=== PATIENT | female | born 1950 | race Caucasian/White ===

== ENCOUNTER 2019-06-24 00:03 | Inpatient (IN) | payer OTHER ==
[~2019-06-24] VITALS: Ht 172.7 cm; Wt 65.8 kg
[2019-06-24 00:03] VITALS: BP 143/66
--- NOTE | 2019-06-24 00:04 | NUR ---
PT BIBA BLS TO ER BED 12
--- NOTE | 2019-06-24 00:15 | NUR ---
69 Y/O F, BROUGHT INTO ED WITH COMPLAINTS OF SOB AND FLU-LIKE SYMPTOMS FOR THE PAST 4 DAYS. PT REPORTS NAUSEA BUT NO VOMITING, COUGH THAT IS NONPRODUCTIVE AND TOO WEAK TO COUGH UP SECRETIONS. HAS LOW GRADE FEVER OF 99.9 AND REPORTS CHEST PAIN FROM DIFFICULTY BREATHING. HX OF COPD AND QUIT SMOKING OVER 30 YEARS AGO. LUNG SOUNDS RHONCHI IN UPPER LOBES. SIERAILS UP x1, PATIENT SITTING UP OVER SIDE OF BED IN TRIPOD POSITION. WILL CONTINUE TO MONITOR.
--- NOTE | 2019-06-24 00:38 | NUR ---
FLU SWAB COLLECTED, PATIENT TOLERATED WELL.
--- NOTE | 2019-06-24 00:47 | NUR ---
XRAY AT BEDSIDE.
[2019-06-24] MEDS ORDERED: NACL 0.9% 500 ML IV SCH (01:00)
[2019-06-24] MEDS ORDERED: PIPERACILLIN/TAZOBACTAM 3.375 GM in DEXTROSE 5% 50 ML IV ONE (01:20)
[2019-06-24] MEDS ORDERED: ALBUTEROL SULFATE/IPRATROPIU 3 ML SOL IH ONE (01:20)
[2019-06-24 01:21] LABS: BASOPHILS % (AUTO) 0.3 % (0.0-2.0); EOSINOPHILS % (AUTO) 0.2 % (0.0-4.0); HEMOGLOBIN 13.2 g/dL (12.0-16.0); LYMPHOCYTES # (AUTO) 2.1 K/uL (2.5-16.5); LYMPHOCYTES % (AUTO) 25.7 % (20.5-51.1); MEAN CORPUSCULAR HEMOGLOBIN 29 pg (27-31); MEAN CORPUSCULAR HGB CONC 33 g/dL (33-37); MEAN CORPUSCULAR VOLUME 88.9 fL (80-94); MONOCYTES # (AUTO) 0.9 K/uL (0.8-1.0); MONOCYTES % (AUTO) 10.8 % (1.7-9.3); NEUTROPHILS # (AUTO) 5.1 K/uL (1.8-7.7); PLATELET COUNT (AUTO) 263 K/uL (140-450); RED CELL DISTRIBUTION WIDTH 13.5 % (11.6-13.7); WHITE BLOOD COUNT (AUTO) 8.2 K/uL (4.8-10.8)
--- NOTE | 2019-06-24 01:29 | NUR ---
PERIPHERAL IV STARTED RIGHT FOREARM 22G, ON FIRST ATTEMPT, PATIENT TOLERATED WELL. IV FLUIDS STARTED.
[2019-06-24 01:33] LABS: ANION GAP 13.8 (8-16); CARBON DIOXIDE 26.4 mmol/L (21-32); CREATININE 0.8 mg/dL (0.6-1.3); POTASSIUM 4.2 mmol/L (3.5-5.1)
[2019-06-24 01:39] LABS: ALBUMIN 3.8 g/dL (3.4-5.0); TOTAL BILIRUBIN 0.4 mg/dL (0.0-1.0)
[2019-06-24] MEDS ORDERED: PIPERACILLIN/TAZOBACTAM 3.375 GM VIAL IV ONE ×2 (01:43→02:02)
--- NOTE | 2019-06-24 02:05 | NUR ---
URINE SAMPLE COLLECTED AND WALKED TO LAB.
[2019-06-24 02:12] LABS: APPEARANCE,URINE CLEAR (CLEAR); BILIRUBIN,URINE NEGATIVE (NEGATIVE); BLOOD, URINE NEGATIVE (NEGATIVE); COLOR,URINE YELLOW (YELLOW); LEUKOCYTE ESTERASE ,URINE NEGATIVE (NEGATIVE); NITRITE, URINE NEGATIVE (NEGATIVE); UGLUCOSE NEGATIVE (NEGATIVE)
[2019-06-24] MEDS ORDERED: ALBUTEROL 0.083% 2.5 MG/3 ML NEBU INH PRN (02:40)
[2019-06-24] MEDS ORDERED: ACETAMINOPHEN 325 MG TAB PO PRN (02:40)
[2019-06-24] MEDS ORDERED: ONDANSETRON 4 MG/2 ML VIAL IVP PRN (02:40)
[2019-06-24] MEDS ORDERED: MORPHINE SULFATE 4 MG/ML SYR IVP PRN (02:40)
--- NOTE | 2019-06-24 03:20 | NUR ---
RECEIVED PATIENT FROM ER NURSE VIA [facility]. ALERT AND ORIENTED X4. NO APPARENT DISTRESS NOTED. ABLE TO TRANSFER AND AMBULATE FROM [facility] TO BED WITH STAND BY ASSIST. WITH 22G RIGHT FOREARM SALINE LOCKED. BED ON LOW POSITION. CALL LIGHT WITHIN REACH. WILL CONTINUE TO MONITOR. Addendum: 06/24/19 at 0654 by Vic Herr RN AG=982/67, 22, 94, 91% ON ROOM AIR.
--- NOTE | 2019-06-24 03:24 | NUR ---
Patient to be transferred to [facility]. Is being transferred due to COPD EXACERBATION. Receiving facility has accepting physician and available space. ER physician has signed transfer form. Patient or responsible republican has agreed to transfer and signed form. Patient belongings inventoried and will be sent with patient. Copy of nursing notes, lab reports, EKG, Physicians Orders and X-rays to be sent with patient. Report called to SCOT at receiving facility. PATIENT IN STABLE CONDITION, VSS, PT REPORTS PAIN/DISCOMFORT AT SACRUM DUE TO UNCOMFORTABLE POSITION, WILL ENDORSE TO RN.
--- NOTE | 2019-06-24 03:25 | NUR ---
REPORT GIVEN TO [facility] RN, SCOT, FOR CONTINUITY OF CARE.
--- NOTE | 2019-06-24 03:49 | NUR ---
SPOKE WITH PATIENTS DAUGHTER TO UPDATE ON PATIENTS CONDITION. JUN [phone]
[2019-06-24] MEDS: LEVOFLOXACIN 750 MG/D5W PREMIX 150 ML IV SCH (03:52)
[2019-06-24] MEDS: HYDROcodone/APAP 5/325 MG 1 TAB TAB PO PRN ×2 (03:54→11:08)
--- NOTE | 2019-06-24 05:10 | NUR ---
PATIENT AWAKE IN BED RESTING. NO APPARENT DISTRESS NOTED. WILL CONTINUE TO MONITOR.
[2019-06-24] MEDS ORDERED: methylPREDNISolone SS 40 MG in WATER STERILE 1 ML IV SCH (06:00)
--- NOTE | 2019-06-24 06:55 | NUR ---
PATIENT AWAKE IN BED. DENIES PAIN NOR DISCOMFORT AT THIS TIME. WILL CONTINUE TO MONITOR.
[2019-06-24] MEDS ORDERED: ALBUTEROL 0.083% 2.5 MG/3 ML NEBU INH SCH (07:00)
[2019-06-24] MEDS: IPRATROPIUM 0.02% 0.5 MG/2.5 ML NEBU INH SCH ×3 (07:00→19:22)
--- NOTE | 2019-06-24 07:20 | NUR ---
ENDORSED TO AM SHIFT NURSE IN STABLE CONDITION FOR CONTINUITY OF CARE.
--- NOTE | 2019-06-24 07:41 | NUR ---
RECEIVED PT FROM DIRECTOR OF COMPLIANCE FRO CONTINUITY OF CARE. PT IS AAOX4, COOPERATIVE. PT IS AMBULATORY WITH ASSISTANCE OF HER CANE. BEDSIDE COMMODE PLACED NEAR PT BED FOR HER SAFETY. PT ON RA, HX OF COPD. SATING AT 91-92%. PT SKIN IS INTACT. IV IN THE RIGHT FA 22G SALINE LOCKED. EXPLAINED POC TO PT AND PT VERBALIZED UNDERSTANDING. SAFETY MEASURES IN PLACE, BED IN LOW POSITION, CALL LIGHT WITHIN REACH. WILL ROUND FREQUENTLY ON PT.
[2019-06-24 08:00] VITALS: BP 108/49
--- NOTE | 2019-06-24 08:28 | NUR ---
PATIENT HAS BEEN SCREENED AND CATEGORIZED MODERATE NUTRITION RISK. PATIENT WILL BE SEEN WITHIN 3-5 DAYS OF ADMISSION. 06/26/19 06/28/[address]
[2019-06-24] MEDS: ENOXAPARIN 40 MG/0.4 ML SYR SUBQ SCH (09:30)
--- NOTE | 2019-06-24 09:36 | NUR ---
PT MORNING MEDS GIVEN. ALL NEEDS MET. WILL CONTINUE TO ROUND FREQUENTLY ON PT. BED IN LOW POSITION, CALL LIGHT WITHIN REACH.
--- NOTE | 2019-06-24 10:48 | NUR ---
I ASKED PT IF SHE HAD MEDICATIONS WITH HER TO COMPLETE MED RECONCILIATION. PT STATED THAT HE MEDS ARE AT HOME AND HER DAUGHTER OR HER GRANDDAUGHTER WILL BE IN TO BRING A LIST OF HER CURRENT MEDS. WILL RECONCILE MEDS WHEN THE LIST/MEDS ARE BROUGHT. DR.KIM ALANIS.
[2019-06-24] MEDS ORDERED: FUROSEMIDE 40 MG/4 ML VIAL IVP SCH (11:40)
--- NOTE | 2019-06-24 11:41 | NUR ---
PT ASLEEP. AT BEDSIDE. WILL CONTINUE TO ROUND FREQUENTLY ON PT. BED IN LOW POSITION, CALL LIGHT WITHIN REACH.
[2019-06-24] MEDS ORDERED: BUDESONIDE 0.5 MG/2 ML NEBU INH SCH (11:45)
[2019-06-24 12:00] VITALS: BP 119/54
--- NOTE | 2019-06-24 13:20 | NUR ---
MS RESTING IN BED WITH AT BEDSIDE. ALL NEEDS MET. WILL CONTINUE TO ROUND FREQUENTLY ON PT. BED IN LOW POSITION, CALL LIGHT WITHIN REACH.
[2019-06-24] MEDS: methylPREDNISolone SS 40 MG/ML VIAL IVP SCH ×3 (13:26→23:06)
--- NOTE | 2019-06-24 13:44 | NUR ---
DISCHARGE PLANNIN YO FEMALE FROM HOME, ADMITTED DUE TO WORSENING DYSPNEA FOR 4 DAYS. INITIAL DIAGNOSIS OF COPD EXACERBATION. PAST MEDICAL HISTORY BRONCHITIS AND COPD. CXR SHOWED BRONCHITIS OR DEVELOPING BRONCHO PNEUMONIA. ON SOLU MEDROL AND LEVOFLOXACIN IV. ON ROOM AIR, SAT 92%. NO CONSULTS AT THIS TIME. DC PLANNING PENDING ON PATIENT'S RESPONSE TO TREATMENT. Addendum: 06/26/19 at 1552 by Sharmaine Wong CM LATE ENTRY: 1140: CONTACTED [facility] [phone] REGARDING WHEELCHAIR ORDER. SHE STATED TO FAX THE ORDER IN TO [phone]. ORDER SENT TO THE PROVIDED NUMBER. 1540: CONTACTED [facility] TO CONFIRM IF THEY HAVE RECEIVED THE FAX. SHE STATED THEY DID NOT. RECONFIRMED THE FAX NUMBER. ORDER FAXED. Addendum: 06/26/19 at 1637 by Sharmaine Wong CM PER [facility], WHEELCHAIR WILL BE DELIVERED TO THE PATIENT'S HOME THROUGH [employer]. AUTH NUMBER [id number]. CHARGE NURSE BERNADETTE MADE AWARE.
--- NOTE | 2019-06-24 13:48 | NUR ---
PT'S BREATHING TX NOT ADMINISTERED BECAUSE IMPUTED ORDERS INCORRECTLY. PAGED FOR RT TO CLARIFY ORDERS. BREATHING TX TO START AT 1900.
--- NOTE | 2019-06-24 15:51 | NUR ---
PT RESTING IN BED. ALL NEEDS MET. PT DENIES PAIN OR SOB. WILL CONTINUE TO ROUND FREQUENTLY ON PT. BED IN LOW POSITION, CALL LIGHT WITHIN REACH.
[2019-06-24 16:00] VITALS: BP 132/52
--- NOTE | 2019-06-24 16:28 | NUR ---
Corporate Learning Consultant Note: Basic Screen: Yes High Risk DC Screen Yes Name: KAILA ZARATE Home Relationship: DAUGHTER Pre-Admission Living Arrangements: Lives Alone Prior ADL Needs Assistance Current Home Health Name/Tel: N/A Current DME/02 Name/Tel: N/A Current Hospice Name/Tel: N/A Current Dialysis Name/Tel: N/A Healthcare Decision Maker: Patient Advance Directive No - REFUSED Physician Orders for Life Sustaining Treatment Form No Patient/Family Have Educational Needs No Information Taught: Advance Directive Person Taught: Patient Teaching Tools: Verbal Factors Affecting Learning: None Participation Level: Active Evaluation: Verbalizes Understanding Needs Additional Education: No Discipline: Case Mgt/Social Svcs Tentative Discharge Plan/Destination: No Needs Identified Will require assistance post discharge: No Referred to Web Site Developer: No Tentative Discharge Plan Summary: Patient is a 69 year old female admitted for chronic obstructive pulmo. Patient has PMHX of bronchitis and COPD. Patient was admitted from home. MOO verified demographics with patients daughter, Kaila Zarate. Kaila reported that patient lives alone but has a caregiver that comes in daily for 4 hours through [facility]. Per Kaila, patient has a history of Bipolar Disorder and is medication compliant. Kaila stated that patient has no substance abuse history. SW offered education on advanced directive but Kaila refused. Kaila stated that patients tentative discharge plan is to return home. No further needs identified. Signature: MAUREEN Zhou Date: Jun 24, 2019 Time: 16:27
[2019-06-24] MEDS: LORazepam 2 MG/ML VIAL IVP PRN (17:29)
--- NOTE | 2019-06-24 17:48 | NUR ---
PT RESTING. ALL NEEDS MET.
[2019-06-24] MEDS: ALBUTEROL 0.083% 2.5 MG/3 ML NEBU INH SCH (19:21)
[2019-06-24] MEDS: BUDESONIDE 0.5 MG/2 ML NEBU INH SCH (19:22)
[2019-06-24] MEDS ORDERED: AMYL-43 PO (19:36)
[2019-06-24] MEDS ORDERED: DILT-135 PO (19:36)
[2019-06-24] MEDS ORDERED: LOVA10TA2 PO (19:36)
[2019-06-24] MEDS ORDERED: MONT10TA35 PO (19:36)
[2019-06-24] MEDS ORDERED: SYN.05 PO (19:36)
[2019-06-24] MEDS ORDERED: LOSA50TA66 PO (19:36)
[2019-06-24] MEDS ORDERED: BUDE1AER IH (19:36)
[2019-06-24] MEDS ORDERED: PRON INH (19:36)
[2019-06-24] MEDS ORDERED: DOCU250S85 PO (19:36)
[2019-06-24] MEDS ORDERED: TRAZ-343 PO (19:36)
[2019-06-24] MEDS ORDERED: BUS5 PO (19:36)
[2019-06-24] MEDS ORDERED: LORA10TA19 PO (19:36)
[2019-06-24] MEDS ORDERED: [UNRECOGNIZED DRUG - CODE] PO (19:36)
--- NOTE | 2019-06-24 19:42 | NUR ---
ENDORSED PT TO BASKETBALL ASSEMBLER FOR CONTINUITY OF CARE. PT IN STABLE CONDITION AT THIS TIME.
--- NOTE | 2019-06-24 19:48 | NUR ---
RECEIVED REPORT FROM AM SHIFT NURSE MARISOL. PATIENT ALERT AND ORIENTED X 4. NO APPARENT DISTRESS NOTED. WITH RIGHT FOREARM 22G PIV. BED ON LOW POSITION. DENIES PAIN NOR DISCOMFORT AT THIS TIME. WILL CONTINUE TO MONITOR.
[2019-06-24 20:00] VITALS: BP 119/45
--- NOTE | 2019-06-24 21:40 | NUR ---
ASSISTED PATIENT TO BEDPAN. NO APPARENT DISTRESS NOTED. BED ON LOW POSITION. BED ALARM ON. NO APPARENT DISTRESS NOTED. WILL CONTINUE TO MONITOR. Addendum: 06/24/19 at 2206 by Vic Herr RN DISREGARD NOTE. WRONG PATIENT.
--- NOTE | 2019-06-24 21:45 | NUR ---
PATIENT RESTING IN BED. NO APPARENT DISTRESS NOTED. WILL CONTINUE TO MONITOR.
--- NOTE | 2019-06-24 23:40 | NUR ---
PATIENT ASLEEP IN BED. NO APPARENT DISTRESS NOTED. WILL CONTINUE TO MONITOR.
[2019-06-25] VITALS: BP 120/63
--- NOTE | 2019-06-25 01:35 | NUR ---
PATIENT ASLEEP IN BED NO DISTRESS NOTED. VISIBLE CHEST RISE AND FALL NOTED. WILL CONTINUE TO MONITOR.
[2019-06-25] MEDS: ALBUTEROL 0.083% 2.5 MG/3 ML NEBU INH SCH ×4 (01:58→19:06)
[2019-06-25] MEDS: IPRATROPIUM 0.02% 0.5 MG/2.5 ML NEBU INH SCH ×4 (01:58→19:06)
--- NOTE | 2019-06-25 02:07 | NUR ---
PT ON ROOM AIR WITH SP02 98% AND RHONCHI BREATH SOUNDS. NO RESPIRATORY DISTRESS NOTED. SPONTANEOUS EXPECTORATE OF MODERATE GREENISH THICK SECRETIONS. TX GIVEN ORDERED WITH NO ADVERSE REACTION. WILL CONTINUE TO MONITOR PT
--- NOTE | 2019-06-25 03:35 | NUR ---
PATIENT ASLEEP IN BED. VISIBLE CHEST RISE AND FALL NOTED. BED ON LOW POSITION. CALL LIGHT WITHIN REACH. NO APPARENT DISTRESS NOTED. WILL CONTINUE TO MONITOR.
[2019-06-25] MEDS: LEVOFLOXACIN 750 MG/D5W PREMIX 150 ML IV SCH (03:43)
[2019-06-25 04:00] VITALS: BP 140/63
[2019-06-25] MEDS: methylPREDNISolone SS 40 MG/ML VIAL IVP SCH ×4 (05:21→23:34)
--- NOTE | 2019-06-25 05:30 | NUR ---
PATIENT ASLEEP IN BED. NO APPARENT DISTRESS NOTED. WILL CONTINUE TO MONITOR.
[2019-06-25 06:12] LABS: HEMATOCRIT 40.5 % (36-48); HEMOGLOBIN 13.1 g/dL (12.0-16.0); LYMPHOCYTES # (AUTO) 0.9 K/uL (2.5-16.5); LYMPHOCYTES % (AUTO) 11.1 % (20.5-51.1); MEAN CORPUSCULAR HEMOGLOBIN 29 pg (27-31); MEAN CORPUSCULAR HGB CONC 32 g/dL (33-37); MEAN CORPUSCULAR VOLUME 89.8 fL (80-94); MONOCYTES # (AUTO) 0.2 K/uL (0.8-1.0); MONOCYTES % (AUTO) 2.9 % (1.7-9.3); NEUTROPHILS # (AUTO) 7.2 K/uL (1.8-7.7); PLATELET COUNT (AUTO) 216 K/uL (140-450); RED BLOOD CELL COUNT(AUTO) 4.51 MIL/uL (4.20-5.40); RED CELL DISTRIBUTION WIDTH 13.7 % (11.6-13.7); WHITE BLOOD COUNT (AUTO) 8.3 K/uL (4.8-10.8)
[2019-06-25 06:53] LABS: ALBUMIN 3.4 g/dL (3.4-5.0); ANION GAP 12.8 (8-16); CARBON DIOXIDE 28.1 mmol/L (21-32); CREATININE 0.8 mg/dL (0.6-1.3); MAGNESIUM 2.1 mg/dL (1.8-2.4); POTASSIUM 3.9 mmol/L (3.5-5.1); TOTAL BILIRUBIN 0.3 mg/dL (0.0-1.0)
--- NOTE | 2019-06-25 07:10 | NUR ---
ENDORSED TO AM SHIFT IN STABLE CONDITION FOR CONTINUITY OF CARE.
[2019-06-25] MEDS: BUDESONIDE 0.5 MG/2 ML NEBU INH SCH ×2 (07:33→19:15)
--- NOTE | 2019-06-25 07:44 | NUR ---
PT IS ON RA SAT 98%. PT HAS A PRODUCTIVE COUGH. SPUTUM IS THIN CLEAR, AND CREAMY. NO RESPIRATORY DISTRESS NOTED
--- NOTE | 2019-06-25 07:45 | NUR ---
Received report from cnc machinist 2nd shift nurse. Pt is in stable condition. Call light in reach.
[2019-06-25 08:00] VITALS: BP 102/75
[2019-06-25] MEDS: HYDROcodone/APAP 5/325 MG 1 TAB TAB PO PRN (08:36)
[2019-06-25] MEDS: ENOXAPARIN 40 MG/0.4 ML SYR SUBQ SCH (08:42)
[2019-06-25] MEDS: LORazepam 2 MG/ML VIAL IVP PRN ×2 (09:25→19:47)
--- NOTE | 2019-06-25 10:00 | NUR ---
Pt is resting in bed. Pt is in stable condition. Call light in reach.
[2019-06-25 12:00] VITALS: BP 142/66
--- NOTE | 2019-06-25 12:00 | NUR ---
Pt is resting in bed. Pt is in stable condition. Call light in reach.
--- NOTE | 2019-06-25 15:00 | NUR ---
Pt is resting in bed. Pt is in stable condition. Call light in reach.
[2019-06-25 16:00] VITALS: BP 130/57
--- NOTE | 2019-06-25 18:00 | NUR ---
Pt is resting in bed. Pt is in stable condition. Grand daughter by bedside. Call light in reach.
--- NOTE | 2019-06-25 19:18 | NUR ---
Shift report given to shift lab technician nurse. Pt is in stable condition. Call light in reach
[2019-06-25 20:00] VITALS: BP 135/63
[2019-06-26] VITALS: BP 115/61
[2019-06-26] MEDS: IPRATROPIUM 0.02% 0.5 MG/2.5 ML NEBU INH SCH ×3 (01:00→12:47)
[2019-06-26] MEDS: ALBUTEROL 0.083% 2.5 MG/3 ML NEBU INH SCH ×3 (01:00→12:47)
--- NOTE | 2019-06-26 01:25 | NUR ---
SCHEDULED BREATHING TX NOT GIVEN AT THIS TIME PER PATIENT'S REQUEST WHILE ASLEEP. PT IS ASLEEP AND IN NO RESP DISTRESS AT THIS TIME.
[2019-06-26] MEDS: LEVOFLOXACIN 750 MG/D5W PREMIX 150 ML IV SCH (03:02)
--- NOTE | 2019-06-26 03:10 | NUR ---
PT SLEEPING, EASILY AROUSABLE, NO SOB NOTED, DUE LEVAQUIN IVPB ADMINISTERED, PT WENT BACK TO SLEEP, MONITORED CLOSELY.
[2019-06-26 04:00] VITALS: BP 111/52
[2019-06-26] MEDS: LEVOTHYROXINE 0.05 MG TAB PO SCH (05:37)
[2019-06-26] MEDS: methylPREDNISolone SS 40 MG/ML VIAL IVP SCH ×3 (05:37→17:14)
--- NOTE | 2019-06-26 05:40 | NUR ---
DUE MEDS ADMINISTERED WITH EDUCATION PROVIDED, TOLERATED WELL, NO RESP DISTRESS NOTED, MONITORED CLOSELY.
--- NOTE | 2019-06-26 07:10 | NUR ---
PT AWAKE, NO SIGNS OF DISTRESS, REPORT GIVEN TO TOBY SENA FOR CONTINUITY OF CARE.
--- NOTE | 2019-06-26 07:18 | NUR ---
RECEIVED BEDSIDE REPORT FROM PM RN PT APPEARS STABLE AND IN NO APPARENT DISTRESS. ALL SAFETY MEASURES ARE IN PLACE WILL CONTINUE TO MONITOR
[2019-06-26] MEDS: BUDESONIDE 0.5 MG/2 ML NEBU INH SCH ×2 (07:23→19:42)
[2019-06-26] MEDS: LORazepam 2 MG/ML VIAL IVP PRN (07:37)
[2019-06-26 08:12] VITALS: BP 126/57
[2019-06-26] MEDS ORDERED: PROTEASE PO SCH (09:00)
[2019-06-26] MEDS ORDERED: NIZATIDINE 150 MG PO SCH (09:00)
[2019-06-26] MEDS ORDERED: LIPASE PO SCH (09:00)
[2019-06-26] MEDS ORDERED: AMYLASE PO SCH (09:00)
[2019-06-26] MEDS: DOCUSATE SODIUM 250 MG GELCAP PO SCH ×3 (09:05→16:35)
[2019-06-26] MEDS: DILTIAZEM 120 MG CAPER PO SCH (09:05)
[2019-06-26] MEDS: LORATADINE 10 MG TAB PO SCH (09:06)
[2019-06-26] MEDS: LOSARTAN 50 MG TAB PO SCH ×2 (09:06→20:36)
[2019-06-26] MEDS: ENOXAPARIN 40 MG/0.4 ML SYR SUBQ SCH (09:11)
--- NOTE | 2019-06-26 09:47 | NUR ---
FREQUENT ROUNDING ON PT PT APPEARS STABLE AND IN NO APPARENT DISTRESS. ALL SAFETY MEASURES ARE IN PLACE
--- NOTE | 2019-06-26 11:34 | NUR ---
FREQUENT ROUNDING ON PT PT APPEARS STABLE AND IN NO APPARENT DISTRESS ALL SAFETY MEASURES ARE IN PLACE
[2019-06-26 12:05] VITALS: BP 128/62
--- NOTE | 2019-06-26 13:57 | NUR ---
FREQUENT ROUNDING ON PT PT APPEARS STABLE AND IN NO APPARENT DISTRESS ALL SAFETY MEASURES ARE IN PLACE.
--- NOTE | 2019-06-26 15:34 | NUR ---
FREQUENT ROUNDING ON PT PT APPEARS STABLE AND IN NO APPARENT DISTRESS. ALL SAFETY MEASURES ARE IN PLACE
[2019-06-26 17:36] VITALS: BP 126/55
[2019-06-26] MEDS: HYDROcodone/APAP 5/325 MG 1 TAB TAB PO PRN (18:47)
--- NOTE | 2019-06-26 19:24 | NUR ---
RECIEVED PT AAOX4 , NID , IV SITE INTACT AND PATENT . NO FURTHER COMPLAIN MADE , RESTING ON BED COMFORTABLY - CALL LIGHT WITHIN REACH . POC DISCUSSED AND VERBALIZE UNDERSTANDING. WILL CONT. TO MONITOR.
--- NOTE | 2019-06-26 19:24 | NUR ---
ENDORSED PT TO PM RN
[2019-06-26] MEDS: ALBUTEROL SULFATE/IPRATROPIU 3 ML SOL IH SCH (19:42)
--- NOTE | 2019-06-26 19:58 | NUR ---
RECEIVED PATIENT ON ROOM AIR, PULSE OX SAT 95%. SCHEDULED BREATHING TREATMENTS ADMINISTERED. TOLERATED WELL WITHOUT ADVERSE SIDE EFFECTS. NO ACUTE RESPIRATORY DISTRESS NOTED AT THIS TIME. WILL CONTINUE TO MONITOR.
[2019-06-26] MEDS ORDERED: LOVASTATIN 10 MG PO SCH (20:00)
[2019-06-26] MEDS ORDERED: LORazepam 2 MG/ML VIAL ONE (20:34)
[2019-06-26] MEDS ORDERED: traZODone 50 MG TAB PO SCH (21:00)
[2019-06-26] MEDS ORDERED: MONTELUKAST SODIUM 10 MG TAB PO SCH (21:00)
--- NOTE | 2019-06-26 22:00 | NUR ---
MADE ROUNDS , NO SIGNS OF ACUTE DISTRESS NOTED AT THIS TIME - WILL CONT. TO MONITOR.
[2019-06-27] VITALS: BP 124/55
[2019-06-27] MEDS: methylPREDNISolone SS 40 MG/ML VIAL IVP SCH (00:18)
--- NOTE | 2019-06-27 01:00 | NUR ---
DR KNIGHT , DROPBY TO GET AN UPDATE ABOUT THE PT. - WILL DISCHARGE TODAY WITH IF STABLE .
[2019-06-27] MEDS: ALBUTEROL SULFATE/IPRATROPIU 3 ML SOL IH SCH ×2 (01:26→06:58)
--- NOTE | 2019-06-27 01:40 | NUR ---
SCHEDULED BREATHING TREATMENT ADMINISTERED. TOLERATED WELL WITHOUT ADVERSE SIDE EFFECTS. NO RESPIRATORY DISTRESS NOTED. WILL CONTINUE TO MONITOR.
[2019-06-27 04:00] VITALS: BP 117/60
--- NOTE | 2019-06-27 04:00 | NUR ---
MADE ROUNDS , NO SIGNS OF ACUTE DISTRESS NOTED AT THIS TIME. - WILL CONT. TO MONITOR.
[2019-06-27] MEDS ORDERED: LEVO750T2 PO (04:33)
[2019-06-27] MEDS ORDERED: PRED20TA5 PO (04:35)
[2019-06-27] MEDS ORDERED: LEVAQUIN (04:39)
[2019-06-27] MEDS ORDERED: LE (04:39)
[2019-06-27] MEDS ORDERED: LEVAQUIN PO (04:41)
[2019-06-27] MEDS: LEVOFLOXACIN 750 MG/D5W PREMIX 150 ML IV SCH (04:42)
--- NOTE | 2019-06-27 06:00 | NUR ---
SLEEPING . CHEST RISE AND FALL EQUALLY. WILL CONT. TO MONITOR.
[2019-06-27 06:26] LABS: HEMATOCRIT 36.9 % (36-48); LYMPHOCYTES # (AUTO) 0.7 K/uL (2.5-16.5); MEAN CORPUSCULAR HEMOGLOBIN 29 pg (27-31); MEAN CORPUSCULAR HGB CONC 33 g/dL (33-37); MEAN CORPUSCULAR VOLUME 89.3 fL (80-94); MONOCYTES # (AUTO) 0.3 K/uL (0.8-1.0); MONOCYTES % (AUTO) 4.3 % (1.7-9.3); NEUTROPHILS # (AUTO) 5.2 K/uL (1.8-7.7); NEUTROPHILS % (AUTO) 84.7 % (42.2-75.2); PLATELET COUNT (AUTO) 244 K/uL (140-450); RED BLOOD CELL COUNT(AUTO) 4.13 MIL/uL (4.20-5.40); RED CELL DISTRIBUTION WIDTH 13.6 % (11.6-13.7); WHITE BLOOD COUNT (AUTO) 6.2 K/uL (4.8-10.8)
[2019-06-27] MEDS: LEVOTHYROXINE 0.05 MG TAB PO SCH (06:42)
[2019-06-27 06:52] LABS: ALBUMIN 3.1 g/dL (3.4-5.0); ANION GAP 13.7 (8-16); CARBON DIOXIDE 25.7 mmol/L (21-32); CREATININE 0.8 mg/dL (0.6-1.3); POTASSIUM 4.4 mmol/L (3.5-5.1); TOTAL BILIRUBIN 0.3 mg/dL (0.0-1.0)
[2019-06-27] MEDS: BUDESONIDE 0.5 MG/2 ML NEBU INH SCH (06:58)
--- NOTE | 2019-06-27 06:58 | NUR ---
PT REFUSED BREATHING TX NO SIGNS OF DISTRESS NOTED PT WILL CALL WHEN SHE NEEDS ONE PT HAVING ANXIETY ATTACK
[2019-06-27] MEDS: LORazepam 2 MG/ML VIAL IVP PRN (07:03)
--- NOTE | 2019-06-27 07:15 | NUR ---
RECEIVED BEDSIDE REPORT FROM NIGHTSHIFT NURSE FOR CONTINUITY OF CARE. PATIENT WAS ALERT AND AWAKE IN BED UPON ARRIVAL. ABLE TO MAKE NEEDS KNOWN. NO COMPLAINTS OR CONCERNS AT THIS TIME. PATIENT IS IN STABLE CONDITION. SKIN INTACT, WARM, AND DRY TO TOUCH. RESPIRATIONS EVEN AND UNLABORED WITH NO SOB OR RESPIRATORY DISTRESS. IV SITE IN R FOREARM 22 G AND IS CLEAN, INTACT, AND DRY. NO COMPLICATIONS AT THIS TIME.
[2019-06-27 08:00] VITALS: BP 134/51
--- NOTE | 2019-06-27 08:40 | NUR ---
PATIENT IS AWARE OF DISCHARGE TODAY. PATIENT EXPRESSED CONCERNS WITH GOING HOME SINCE DAUGHTER IS NOT ABLE TO PICK HER UP TODAY AND TAKE HER HOME. SPOKE WITH SON ON THE PHONE ABOUT DISCHARGE PLANNING TO ANSWER ANY QUESTIONS THAT HE HAS.
[2019-06-27] MEDS ORDERED: predniSONE 20 MG TAB PO SCH (09:00)
[2019-06-27] MEDS: ENOXAPARIN 40 MG/0.4 ML SYR SUBQ SCH (09:05)
[2019-06-27] MEDS: LOSARTAN 50 MG TAB PO SCH (09:07)
[2019-06-27] MEDS: DOCUSATE SODIUM 250 MG GELCAP PO SCH (09:08)
[2019-06-27] MEDS: LORATADINE 10 MG TAB PO SCH (09:08)
[2019-06-27] MEDS: DILTIAZEM 120 MG CAPER PO SCH (09:09)
--- NOTE | 2019-06-27 09:16 | NUR ---
ADMINISTERED MEDICATIONS PRESCRIBED PER MD. PATIENT MEDICATION EDUCATION PERFORMED. PATIENT ABLE TO VERBALIZE UNDERSTANDING. NO CONCERNS AT THIS TIME. PATIENT STATED HER GRANDSON WILL BE HERE AROUND NOON TO PICK HER UP AND TAKE HER HOME. PATIENT IN BED RESTING. NO DISTRESS AT THIS TIME. SAFETY MEASURES: HOB ELEVATED, BED IN LOWEST POSITION, AND FERNIE LIGHT WITHIN REACH, BED ALARM ACTIVATED.
--- NOTE | 2019-06-27 11:27 | NUR ---
PATIENT WAS ASLEEP IN BED UPON ARRIVAL. AROUSABLE TO TACTILE AND VERBAL STIMULI. ABLE TO MAKE NEEDS KNOWN. NO CONCERNS OR COMPLAINTS AT THIS TIME. SAFETY MEASURES: HOB ELEVATED, BED IN LOWEST POSITION, CALL LIGHT WITHIN REACH, AND BED ALARM ACTIVATED.
[2019-06-27 12:00] VITALS: BP 121/82
[2019-06-27] MEDS ORDERED: INFLUENZA VACCINE QUAD 0.5 ML SYR IMVAC PRN (12:00)
--- NOTE | 2019-06-27 12:55 | NUR ---
ASSESSED PATIENT FOR ALLERGIC REACTIONS TO INFLUENZA VACCINATION. PATIENT DENIED TO ANY REACTIONS FROM PREVIOUS FLU VACCINES. NO ALLERGIC REACTIONS TO EGG, BANANA , KIWI AND LATEX. FLU VACCINATION EDUCATION PROVIDED TO PATIENT AND PATIENT VERBALIZED UNDERSTANDING. ADMINISTERED FLU VACCINE. PATIENT TOLERATED WELL. NO COMPLAINTS OR COMPLICATIONS NOTED AT THIS TIME.
--- NOTE | 2019-06-27 13:10 | NUR ---
DISCHARGE EDUCATION PROVIDED TO PATIENT AT BEDSIDE. EDUCATED PATIENT WITH MD FOLLOW UP, SEEK MEDICAL HELP, MEDICATION REGIMEN, SIDE EFFECTS, DISEASE MANAGEMENT, AND DIET. ANSWERED ALL PATIENT'S QUESTIONS AND PATIENT VERBALIZED UNDERSTANDING. PROVIDED PRESCRIPTIONS TO PATIENT. PATIENT WAS AWARE HER WHEELCHAIR WILL BE DELIVERY TO HER HOUSE TODAY. FLU VACCINE WAS GIVEN AND EDUCATION PROVIDED. PNA VACCINE WAS NOT GIVEN DUE TO PATIENT WANTS TO GET IT FROM PCP. PATIENT GATHERED ALL OF HER BELONGS FROM THE ROOM. IV LINE WAS REMOVED, CANNULA INTACT AND COMPLETED. ARM BANDS WERE REMOVED. ESCORTED PATIENT TO THE FRONT LOBBY WITH WHEELCHAIR. PATIENT IS GOING TO DISCHARGE HOME ACCOMPANIED WITH VARINDER VÁZQUEZ. PATIENT IS IN STABLE CONDITION.
--- NOTE | 2019-06-27 13:55 | NUR ---
CALLED [facility] #[phone], SPOKE WITH SANDRA. STATED HE WILL CALL THEIR PUBLIC [facility]ER [facility] SO THEY CAN DELIVER THE WHEELCHAIR TO PT'S RESIDENCE TODAY.
== END 2019-06-27 13:10 | disposition home or self-care (01) | DRG 190 ==
LOC: MED 00:03 → MTU 02:45
PROVIDERS: ADMIT Internal Medicine Pulmonary Disease; ATTEND Internal Medicine Pulmonary Disease
DX: J44.1 Chronic obstructive pulmonary disease with (acute) exacerbation (principal); R65.11 Systemic inflammatory response syndrome (SIRS) of non-infectious origin with acute organ dysfunction; J20.9 Acute bronchitis, unspecified; F17.210 Nicotine dependence, cigarettes, uncomplicated; J44.0 Chronic obstructive pulmonary disease with (acute) lower respiratory infection; I50.9 Heart failure, unspecified; Z23 Encounter for immunization
CPT/HCPCS: 36415; 71045; 80053; 81003; 82948; 83605; 83735; 83880; 84484; 85025; 87040; 87081; 87804; 93005; 94640; 96361; 96365; 97110; 97116; 97530; 99285; J1650; J1940; J1956; J2060; J2405; J2543; J2920; J7030; J7512; J7613; J7620; J7626; J7644; Q0092